=== PATIENT | female | born 1950 ===

== ENCOUNTER 2021-10-12 06:43 | Day surgery (SDC) | payer OTHER ==
[~2021-10-12 06:43] MED LIST: HYZAAR 100-251 EACH PO; LIPITOR20 MG PO; NORVASC2.5 MG PO
[2021-10-12] MEDS ORDERED: ULTRACET PO (10:09)
[2021-10-12] MEDS ORDERED: MACROBID 100 M100 MG PO (10:09)
== END 2021-10-12 13:50 | disposition home or self-care (01) ==
LOC: CIR.AMB 06:43
PROVIDERS: ATTEND Obstetrics & Gynecology Gynecology
DX: N81.11 Cystocele, midline (principal); Z20.822 Contact with and (suspected) exposure to COVID-19